=== PATIENT | male | born 1990 | race Two or more races ===

== ENCOUNTER 2021-02-21 00:09 | Emergency (ER) | payer MEDICAID ==
[~2021-02-21] VITALS: Ht 170.2 cm; Wt 72.1 kg
[2021-02-21 03:14] VITALS: BP 127/67
== END 2021-02-21 03:29 | disposition home or self-care (01) ==
LOC: ER 00:10
DX: N43.3 Hydrocele, unspecified (principal); R10.31 Right lower quadrant pain; F17.210 Nicotine dependence, cigarettes, uncomplicated
CPT/HCPCS: 76870

== ENCOUNTER → 2022-01-05 | Emergency (ER) | payer MEDICAID ==
[~2022-01-05] VITALS: Ht 170.2 cm; Wt 75.0 kg
[2022-01-05 20:14] VITALS: BP 108/51
== END | disposition left against medical advice (07) ==
LOC: ER 19:40
DX: S41.111A Laceration without foreign body of right upper arm, initial encounter (principal); Z53.21 Procedure and treatment not carried out due to patient leaving prior to being seen by health care provider; W25.XXXA Contact with sharp glass, initial encounter; Y93.89 Activity, other specified; Y92.89 Other specified places as the place of occurrence of the external cause; Y99.8 Other external cause status